=== PATIENT | female | born 1980 | race Caucasian/White ===

== ENCOUNTER 2017-01-08 16:24 | Emergency (ER) | payer BC ==
[2017-01-08 16:30] VITALS: RESP 18; TEMP 97.7
[2017-01-08] MEDS ORDERED: IBUPROFEN 600 MG TAB PO ONE (16:45)
--- NOTE | 2017-01-08 17:13 | EDPHY ---
General Narrative: CHIEF COMPLAINT: Right elbow pain HISTORY OF PRESENT ILLNESS: Patient complains of pain in the right elbow status post fall. She was walking down a set of stairs when she slipped on the last 2 stairs. She is not entirely sure what happened, but she thinks she got her right arm caught in the railing as she went down the last few stairs. She has pain in the right elbow over the radial head. It is worse with flexion extension of the elbow. It is moderate to severe. Does not radiate. Some tingling of the hand but no numbness. No pain in the right hand, wrist or shoulder. No head strike or loss of consciousness. No neck pain. No chest or back pain. No other associated complaints or modifying factors. Right-hand dominant. ESTABLISHED ORTHOPEDIST: None REVIEW OF SYSTEMS: Ten systems reviewed and are negative unless otherwise noted in the HPI PAST MEDICAL HISTORY: Hypothyroid PAST SURGICAL HISTORY: None SOCIAL HISTORY: Nonsmoker. FAMILY HISTORY: Noncontributory EXAMINATION General Appearance: Alert, no distress Cardiovascular: Pulses normal throughout. Symmetric radial pulses 2+. Brisk cap refill Neurological: A&O, sensory symmetric, interossei strength symmetric. No wrist drop Skin: Warm and dry, no rash. No lacerations abrasions, punctures or contusion Extremities: Significant tenderness over the right radial head. There is no tenderness over the olecranon. No tenderness of the right hand or wrist. No snuffbox tenderness. Range of motion of the right wrist is intact. Range of motion of the right elbow was intact but significantly painful. Unable to straighten the elbow without pain. No tenderness of the right shoulder. Neurovascular intact distal to the pain with normal light sensation of the hand. Psychiatric: Mood and affect normal DIFFERENTIAL DIAGNOSES: Including but not limited to fracture, sprain, strain, contusion, hematoma, dislocation MDM: 4:45 p.m. Mechanical fall with right elbow pain. There is pain over the radial head. X- ray has been ordered but not yet available. Neurovascular intact. No injury elsewhere. 5:05 p.m. X-ray as read by me reveals no obvious fracture dislocation. 5:15 p.m. X-ray has been read by radiologist as no acute fracture. I have re-evaluated the patient. Given the presence of pain with flexion extension of the elbow, I will treat her for the possibility of occult radial head fracture. She will be placed in a posterior long-arm splint. She will be provided a sling. Instructions include rest, ice, elevation. [id number] anti- inflammatories every 8 hours. Short course of pain medication as needed. Follow up with orthopedist early next week, information provided. ED precautions discussed. The patient is comfortable with this plan. She will be discharged home stable condition. ED Precautions: Worsening pain. Erythema, edema, cyanosis, pallor, paresthesia or anesthesia. - History Smoking Status: Never smoked - Objective Vital Signs: Initial Vital Signs Temperature (C) 97.7 F 01/08/17 16:27 Heart Rate 78 01/08/17 16:27 Respiratory Rate 18 01/08/17 16:27 Blood Pressure 110/76 01/08/17 16:27 O2 Sat (%) 99 01/08/17 16:27 O2 Delivery Mode Room Air Allergies/Adverse Reactions: No Known Allergies Allergy (Unverified 01/08/17 16:26) Home Medications: Medication Instructions Recorded Hydrocodone/APAP 5/325 [Arnold 1 - 2 tab PO Q4H PRN #13 tab 01/08/17 5/325 (*)] Levothyroxine 01/08/17 Departure - Departure Disposition: Home, Routine, Self-Care Clinical Impression: Elbow pain, right Contusion of elbow, right Qualifiers: Encounter type: initial encounter Qualified Code(s): S50.01XA - Contusion of right elbow, initial encounter Condition: Good Instructions: Elbow Fracture (ED), Elbow Sprain (ED) Additional Instructions: 1. Ice, elevation and rest on the right upper extremity 2. [id number] anti-inflammatories as discussed as needed 3. Pain medication as prescribed as needed 4. Contact orthopedist on Tuesday morning for definitive care 5. ED precautions as discussed Referrals: MANOLO MASON [Primary Care Provider] - As per Instructions Arturo Martinez MD [Medical Doctor] - As per Instructions Prescriptions: Hydrocodone/APAP 5/325 [Arnold 5/325 (*)] 1 - 2 tab PO Q4H PRN #13 tab PRN Reason: Pain, Moderate
[2017-01-08] MEDS ORDERED: HYDROCOD/APAP 5/325 PREPACK#6 BTL TAKEHOME ONE (17:34)
[2017-01-08 18:12] VITALS: BP 113/68; PULSE 73; O2SAT 96
== END 2017-01-08 18:11 | disposition home or self-care (01) ==
DX: S50.01XA Contusion of right elbow, initial encounter (principal); W10.8XXA Fall (on) (from) other stairs and steps, initial encounter; Y99.8 Other external cause status; Y93.01 Activity, walking, marching and hiking
CPT/HCPCS: A4565